=== PATIENT | male | born 1935 | race Caucasian/White ===

== ENCOUNTER 2017-01-28 14:03 | Emergency (ER) | payer MEDICARE, BC, OTHER ==
[~2017-01-28] VITALS: Ht 177.8 cm; Wt 110.0 kg
[~2017-01-28 14:03] MED LIST: ACET325 PO; AMIO200 PO; ARIC5TAB PO; ASCO500 PO; ASPI1TAB7 PO; CARV12.52 PO; COLL30OI3 TOP; DEMA10TA PO; DUONI NEB; FAMO40TA PO; GABA600T PO; IMDU30TA PO; LIDO5%T TOP; REME15TA PO; RIVA9.5T TD; SILV1CRE59 TOP; SPIR25 PO; TAB-TAB PO; TUMS500C PO; UMEC1INH INH; VANC500 PO; [UNRECOGNIZED DRUG - CODE] PO
[2017-01-28 14:36] VITALS: BP 109/63; PULSE 84; RESP 24; TEMP 98.3; O2SAT 82
--- NOTE | 2017-01-28 15:02 | PD ---
HPI Chief Complaint: Altered Mental Status Time Seen by Provider: 14:25 Travel History International Travel<30 days: No Contact w/Intl Traveler<30days: No Traveled to known affect area: No History of Present Illness HPI The patient is a 81-year-old male who presents emergency department via EMS from the residential for altered mental status. The patient is currently on hospice according to the , is a DNR, and is followed by hospice of [facility]. The patient has a history of hypoxia and is on oxygen 24 hours a day, also was recently diagnosed with a UTI and placed on Bactrim. According to the the patient is had decreasing mental status over the last several days at the residential and was referred to the emergency department for further evaluation. She does note he is slightly more altered than normal. Upon arrival the patient will open his eyes, but will not follow commands or answer questions. Most of the history is obtained from the and from the medical records that were sent from the residential. PFSH Past Medical History Arthritis: Yes Atrial Fibrillation: Yes Blood Disorders: No Anxiety: Yes Heart Rhythm Problems: Yes (AFIB) Cancer: No Cardiac Catheterization: Yes Cardiovascular Problems: Yes (AAA) High Cholesterol: Yes Chemotherapy: No Chest Pain: Yes Congestive Heart Failure: Yes Diminished Hearing: Yes Endocrine: No Gastrointestinal Disorders: Yes (DIVERTIVULOSIS) Genitourinary: Yes (RETENTION) Hypertension: Yes Immune Disorder: No Implanted Vascular Access Dvce: Yes Musculoskeletal: No Neurologic: Yes (DEMENTIA) Psychiatric: Yes (? 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) Reproductive: No Respiratory: No Myocardial Infarction: Yes Radiation Therapy: No Past Surgical History Abdominal Surgery: Yes (HERNIA REPAIR, CHOLECYSTECOMY) AICD: Yes ([employer]) Cardiac Surgery: Yes (CABG, ANGIOPLASTY) Cholecystectomy: Yes Coronary Artery Bypass Graft: Yes Ear Surgery: No Endocrine Surgery: No Eye Surgery: Yes (CATARACT REMOVAL) Gynecologic Surgery: No Oral Surgery: No Pacemaker: Yes Other Surgery: Yes Social History Alcohol Use: No Tobacco Use: Yes (very rarely ) Substance Use: No Allergies-Medications (Allergen,Severity, Reaction): Coded Allergies: Morphine (Verified Allergy, Severe, Hallucinations, 01/28/16) Reported Meds & Prescriptions Reported Meds & Active Scripts Active Reported Zolpimist (Zolpidem Tartrate) 5 Mg/Act Spr Spironolactone 25 Mg Tab 25 Mg PO DAILY Rivastigmine Patch (Rivastigmine) 9.5 mg/24 hr Patch 1 Patch T-DERMAL DAILY Oxycodone (Oxycodone HCl) 5 Mg Cap 5 Mg PO Q4H PRN Namenda Xr (Memantine) 28 Mg Caper 28 Mg PO DAILY Mirtazapine 30 Mg Tab 30 Mg PO HS Lorazepam 0.5 Mg Tab 0.5 Mg PO Q4H PRN Isosorbide Mononitrate ER (Isosorbide Mononitrate) 30 Mg Mary Grace 30 Mg PO DAILY Duoneb (Ipratropium-Albuterol Neb) 0.5-2.5 Mg/3 Ml Neb 1 Nebule INH Q6HR NEB Incruse Ellipta Inh (Umeclidinium [place] Inh) 0.0625 Mg/Act Inh 62.5 Mcg INH DAILY Gabapentin 600 Mg Tab 600 Mg PO BID Furosemide 40 Mg Tab 40 Mg PO DAILY Famotidine 40 Mg Tab 40 Mg PO HS Carvedilol 12.5 Mg Tab 12.5 Mg PO BID Calcium (Oyster Shell) 500 Mg Tab 500 Bisac-Evac Supp (Bisacodyl) 10 Mg Supp 10 Mg RECTAL DAILY PRN Benzonatate 100 Mg Cap 200 Mg PO TID PRN Bactrim DS (Sulfamethoxazole-Trimethoprim) 800-160 Mg Tab 1 Tab PO BID Amiodarone (Amiodarone HCl) 200 Mg Tab 200 Mg PO DAILY Review of Systems ROS Limitations: Altered Mental Status Except as stated in HPI: all other systems reviewed are Neg Neurologic: Positive: Change in Mentation Physical Exam Narrative GENERAL: Eyes close, responds to painful stimuli, but unable to have a conversation. SKIN: Focused skin assessment warm/dry. HEAD: Atraumatic. Normocephalic. EYES: Pupils equal and round. Pupils are 4 mm bilateral and reactive. ENT: No nasal bleeding or discharge. Mucous membranes pink and moist. NECK: Trachea midline. No JVD. CARDIOVASCULAR: Regular rate and rhythm. No murmur appreciated. RESPIRATORY: No accessory muscle use. Clear to auscultation. Breath sounds equal bilaterally. GASTROINTESTINAL: Abdomen soft, obese, no rebound tenderness. Well-healed diagonal scar right upper quadrant. Genitourinary: The patient has a catheter that is placed through a split penis and has a leg bag attached with less than 100 cc of urine. MUSCULOSKELETAL: No obvious deformities. No clubbing. No cyanosis. No edema. NEUROLOGICAL: Open his eyes to painful stimuli, nonverbal. Does not follow commands. PSYCHIATRIC: Unable to assess. Data Data Last Documented VS Vital Signs Date Time Temp Pulse Resp B/P Pulse Ox O2 Delivery O2 Flow Rate FiO2 01/28/17 14:42 82 Nasal Cannula 3 01/28/17 14:36 98.3 84 24 109/63 Orders Complete Blood Count With Diff (01/28/17 14:43) Comprehensive Metabolic Panel (01/28/17 14:43) Urinalysis - C+S If Indicated (01/28/17 14:43) Chest, Single Ap (01/28/17 ) Electrocardiogram (01/28/17 ) Troponin I (01/28/17 14:43) Creatine Kinase (Cpk) (01/28/17 14:43) Sodium Chlorid 0.9% 500 Ml Inj (Ns 500 M (01/28/17 15:15) Albuterol-Ipratropium Neb (Duoneb Neb) (01/28/17 15:30) Urine Culture (01/28/17 14:55) Ceftriaxone Inj (Rocephin Inj) (01/28/17 16:00) Ns (Bolus) Inj (01/28/17 17:15) Labs Laboratory Tests Test 01/28/17 01/28/17 01/28/17 14:10 14:55 16:15 White Blood Count 11.6 TH/MM3 Red Blood Count 4.22 MIL/MM3 Hemoglobin 11.4 GM/DL Hematocrit 37.3 % Mean Corpuscular Volume 88.3 FL Mean Corpuscular Hemoglobin 27.0 PG Mean Corpuscular Hemoglobin 30.6 % Concent Red Cell Distribution Width 20.1 % Platelet Count 231 TH/MM3 Mean Platelet Volume 8.7 FL Neutrophils (%) (Auto) 70.5 % Lymphocytes (%) (Auto) 15.6 % Monocytes (%) (Auto) 11.3 % Eosinophils (%) (Auto) 1.9 % Basophils (%) (Auto) 0.7 % Neutrophils # (Auto) 8.2 TH/MM3 Lymphocytes # (Auto) 1.8 TH/MM3 Monocytes # (Auto) 1.3 TH/MM3 Eosinophils # (Auto) 0.2 TH/MM3 Basophils # (Auto) 0.1 TH/MM3 CBC Comment DIFF FINAL Differential Comment Urine Color YELLOW Urine Turbidity HAZY Urine pH 6.5 Urine Specific [place] 1.019 Urine Protein 100 mg/dL Urine Glucose (UA) NEG mg/dL Urine Ketones NEG mg/dL Urine Occult Blood LARGE Urine Nitrite NEG Urine Bilirubin NEG Urine Urobilinogen LESS THAN 2.0 MG/DL Urine Leukocyte Esterase LARGE Urine RBC 45 /hpf Urine WBC /hpf Urine Amorphous Sediment RARE Urine Bacteria OCC /hpf Urine Hyaline Casts 5 /lpf Urine Mucus FEW /lpf Microscopic Urinalysis Comment CATH-CULTURE IND Sodium Level 138 MEQ/L Potassium Level 4.9 MEQ/L Chloride Level 99 MEQ/L Carbon Dioxide Level 34.0 MEQ/L Anion Gap 5 MEQ/L Blood Urea Nitrogen 43 MG/DL Creatinine 1.84 MG/DL Estimat Glomerular Filtration 36 ML/MIN Rate Random Glucose 184 MG/DL Calcium Level 8.2 MG/DL Total Bilirubin 0.2 MG/DL Aspartate Amino Transf 33 U/L (AST/SGOT) Alanine Aminotransferase 29 U/L (ALT/SGPT) Alkaline Phosphatase 83 U/L Total Creatine Kinase 53 U/L Troponin I 0.04 NG/ML Total Protein 6.8 GM/DL Albumin 2.6 GM/DL MDM Medical Decision Making Medical Screen Exam Complete: Yes Emergency Medical Condition: Yes Medical Record Reviewed: Yes Interpretation(s) EKG reveals electronic paced rhythm with a rate of 73. Last Impressions Chest X-Ray 01/28/17 0000 Signed Impressions: Service Date/Time: Saturday, January 28, 2017 14:42 - CONCLUSION: Cardiomegaly with moderate congestive failure Consolidative changes left base Moderate interstitial edema. Alexander Maurice MD FACR Laboratory Tests Test 01/28/17 01/28/17 01/28/17 14:10 14:55 16:15 White Blood Count 11.6 TH/MM3 Red Blood Count 4.22 MIL/MM3 Hemoglobin 11.4 GM/DL Hematocrit 37.3 % Mean Corpuscular Volume 88.3 FL Mean Corpuscular Hemoglobin 27.0 PG Mean Corpuscular Hemoglobin 30.6 % Concent Red Cell Distribution Width 20.1 % Platelet Count 231 TH/MM3 Mean Platelet Volume 8.7 FL Neutrophils (%) (Auto) 70.5 % Lymphocytes (%) (Auto) 15.6 % Monocytes (%) (Auto) 11.3 % Eosinophils (%) (Auto) 1.9 % Basophils (%) (Auto) 0.7 % Neutrophils # (Auto) 8.2 TH/MM3 Lymphocytes # (Auto) 1.8 TH/MM3 Monocytes # (Auto) 1.3 TH/MM3 Eosinophils # (Auto) 0.2 TH/MM3 Basophils # (Auto) 0.1 TH/MM3 CBC Comment DIFF FINAL Differential Comment Urine Color YELLOW Urine Turbidity HAZY Urine pH 6.5 Urine Specific [place] 1.019 Urine Protein 100 mg/dL Urine Glucose (UA) NEG mg/dL Urine Ketones NEG mg/dL Urine Occult Blood LARGE Urine Nitrite NEG Urine Bilirubin NEG Urine Urobilinogen LESS THAN 2.0 MG/DL Urine Leukocyte Esterase LARGE Urine RBC 45 /hpf Urine WBC /hpf Urine Amorphous Sediment RARE Urine Bacteria OCC /hpf Urine Hyaline Casts 5 /lpf Urine Mucus FEW /lpf Microscopic Urinalysis Comment CATH-CULTURE IND Sodium Level 138 MEQ/L Potassium Level 4.9 MEQ/L Chloride Level 99 MEQ/L Carbon Dioxide Level 34.0 MEQ/L Anion Gap 5 MEQ/L Blood Urea Nitrogen 43 MG/DL Creatinine 1.84 MG/DL Estimat Glomerular Filtration 36 ML/MIN Rate Random Glucose 184 MG/DL Calcium Level 8.2 MG/DL Total Bilirubin 0.2 MG/DL Aspartate Amino Transf 33 U/L (AST/SGOT) Alanine Aminotransferase 29 U/L (ALT/SGPT) Alkaline Phosphatase 83 U/L Total Creatine Kinase 53 U/L Troponin I 0.04 NG/ML Total Protein 6.8 GM/DL Albumin 2.6 GM/DL Differential Diagnosis Differential diagnosis includes delirium, UTI, sepsis, pneumonia, hyponatremia, acute renal insufficiency, electrolyte abnormality, STEMI. Narrative Course IV was established, labs are drawn and sent, and the patient was placed on cardiac telemetry monitoring and continuous pulse oximetry monitoring. EKG was ordered and interpreted. Catheter UA was sent to lab. The patient was administered IV fluids. The states the patient is a hospice patient, he is a DNR, he would not want intubation. The states that she would not want him to have dialysis, he can receive IV fluids and IV antibiotics. The patient's creatinine was mildly elevated at 1.84 consistent with mild dehydration, chest x-ray reveals cardiomegaly and interstitial edema with possible left lower lobe pneumonia. We did order duo nebs for the patient, however, the declined the duo nebs. The patient was treated with Rocephin for obvious UTI and possible pneumonia. Hospice had a discussion with the , she would want the patient to be treated, but she would like him transferred back to the residential. Therefore, the patient was administered IV fluids and Rocephin, will be discharged back to the residential. Diagnosis Primary Impression: Dehydration Additional Impressions: Congestive heart failure Qualified Code: I50.9 - Acute on chronic congestive heart failure, unspecified congestive heart failure type UTI (urinary tract infection) Qualified Code: T83.511A - Urinary tract infection associated with indwelling urethral catheter, initial encounter Additional Instructions: Please provide the patient a copy of his x-ray results and lab results for transfer back to the residential. Follow-up with hospice. Disposition: 03 DISCHARGE TO SNF (discharge back to residential) Condition: Stable Mookie Awad MD Jan 28, 2017 15:02
--- NOTE | 2017-01-28 15:05 | RADRPT ---
EXAM DATE/TIME: 01/28/2017 14:42 [facility] COMPARISON: CHEST SINGLE AP, January 28, 2016, 5:49. INDICATIONS : Short of breath. MEDICAL HISTORY : Chronic obstructive pulmonary disease. Congestive heart failure. SURGICAL HISTORY : CABG. Abdominal aortic aneurysm repair. Pacemaker. ENCOUNTER: Initial ACUITY: 1 day PAIN SCORE: Non-responsive. LOCATION: Bilateral chest FINDINGS: Thoracic stent graft is noted. Pacer is evident. There is cardiomegaly with mild interstitial edema and is unchanged in the left base. . Osseous structures are intact. CONCLUSION: Cardiomegaly with moderate congestive failure Consolidative changes left base Moderate interstitial edema. Alexander Maurice MD FACR on January 28, 2017 at 15:01 Board Certified Radiologist. This report was verified electronically.
[2017-01-28] MEDS ORDERED: SODIUM CHLORID 0.9% 500 ML INJ 500 ML IV ONE ×2 (15:15→17:15)
[2017-01-28] MEDS ORDERED: BISA10R RECTAL (15:19)
[2017-01-28] MEDS ORDERED: IPRASOL INH (15:19)
[2017-01-28] MEDS ORDERED: RIVA1DIS2 T-DERMAL (15:19)
[2017-01-28] MEDS ORDERED: BENZ1CAP8 PO (15:19)
[2017-01-28] MEDS ORDERED: ISOS30TA3 PO (15:19)
[2017-01-28] MEDS ORDERED: MIRT30TA PO (15:19)
[2017-01-28] MEDS ORDERED: CARV12.52 PO (15:19)
[2017-01-28] MEDS ORDERED: CALC500T35 (15:19)
[2017-01-28] MEDS ORDERED: FAMO40TA PO (15:19)
[2017-01-28] MEDS ORDERED: LORA-373 PO (15:19)
[2017-01-28] MEDS ORDERED: GABA600T PO (15:19)
[2017-01-28] MEDS ORDERED: OXYC1CAP PO (15:19)
[2017-01-28] MEDS ORDERED: BACT800T5 PO (15:19)
[2017-01-28] MEDS ORDERED: MEMA28CA PO (15:19)
[2017-01-28] MEDS ORDERED: ZOLP1SPR (15:19)
[2017-01-28] MEDS ORDERED: FURO40TA PO (15:19)
[2017-01-28] MEDS ORDERED: SPIR25TA PO (15:19)
[2017-01-28] MEDS ORDERED: AMIO200T PO (15:19)
[2017-01-28] MEDS ORDERED: UMEC1INH INH (15:19)
[2017-01-28 15:27] LABS: AUTOMATED NEUTROPHIL # 8.2 TH/MM3 (1.8-7.7); BASOPHIL # 0.1 TH/MM3 (0-0.2); BASOPHIL % 0.7 % (0.0-2.0); EOSINOPHIL # 0.2 TH/MM3 (0-0.4); EOSINOPHIL % 1.9 % (0.0-4.0); HEMATOCRIT 37.3 % (39.0-51.0); HEMO FLAGS DIFF FINAL; LYMPH % 15.6 % (9.0-44.0); LYMPHOCYTE # 1.8 TH/MM3 (1.0-4.8); MEAN CELL VOLUME 88.3 FL (80.0-100.0); MEAN CORPUSCULAR HGB CONC 30.6 % (32.0-36.0); MONO % 11.3 % (0.0-8.0); NEUT % 70.5 % (16.0-70.0); PLATELET COUNT 231 TH/MM3 (150-450); RED BLOOD COUNT 4.22 MIL/MM3 (4.50-5.90); RED CELL DISTRIBUTION WIDTH 20.1 % (11.6-17.2); WHITE BLOOD COUNT 11.6 TH/MM3 (4.0-11.0)
[2017-01-28] MEDS ORDERED: RESP: ALBUTEROL 2.5 MG/IPRATROPIUM 0.5 MG NEB (SCH) NEB ONE (15:30)
[2017-01-28 15:35] LABS: BACTERIA, URINE OCC /hpf; BLOOD, URINE LARGE (NEG); GLUCOSE,URINE NEG (NEG); HYALINE CAST, URINE 5 /lpf (RARE); KETONE, URINE NEG (NEG); MUCUS URINE FEW /lpf (OCC); NITRITE,URINE NEG (NEG); PH, URINE 6.5 (5.0-8.5); URINE COLOR YELLOW (YELLW/STRAW)
[2017-01-28 15:37] LABS: COMMENT (UR) CATH-CULTURE IND; CULTURE IF INDICATED CATH CULTURE IND
[2017-01-28] MEDS ORDERED: cefTRIAXone INJ 1,000 MG in SODIUM CHLORIDE 0.9% INJ 100 ML IV ONE (16:00)
[2017-01-28 16:48] LABS: ALT (GPT) 29 U/L (12-78); ANION GAP 5 MEQ/L (5-15); AST (GOT) 33 U/L (15-37); BLOOD UREA NITROGEN 43 MG/DL (7-18); CHLORIDE 99 MEQ/L (98-107); GLOMERULAR FILTRATION RATE 36 ML/MIN (>89); POTASSIUM 4.9 MEQ/L (3.5-5.1); SODIUM (NA) 138 MEQ/L (136-145)
[2017-01-28 16:58] LABS: ALKALINE PHOSPHATASE 83 U/L (45-117); TOTAL BILIRUBIN ADULT 0.2 MG/DL (0.2-1.0)
[2017-01-28 17:02] LABS: CREATINE KINASE 53 U/L (39-308)
--- NOTE | 2017-01-29 13:26 | EKG ---
Date Performed: 01/28/2017 Time Performed: 14:51:25 PTAGE: 81 years EKG: ELECTRONIC VENTRICULAR PACEMAKER ABNORMAL RHYTHM ECG PREVIOUS TRACING : 12/01/2016 23.26 Compared to prior tracing no significant change DOCTOR: Ge Lin Interpretating Date/Time 01/29/2017 13:20:16
== END 2017-01-28 18:48 ==
LOC: NEPE 14:03
DX: E86.0 Dehydration (principal); I11.0 Hypertensive heart disease with heart failure; N39.0 Urinary tract infection, site not specified; B96.4 Proteus (mirabilis) (morganii) as the cause of diseases classified elsewhere; I48.91 Unspecified atrial fibrillation
CPT/HCPCS: 71010; 80053; 81001; 82550; 84484; 85025; 87077; 87086; 87186; 93005; 96361; 96365; 99285; J0696; J7040